=== PATIENT | female | born 1990 | race Caucasian/White ===

== ENCOUNTER → 2021-01-20 14:34 | Outpatient (BNVA) | payer BC, MEDICAID, SELFPAY | PROVIDERS: Referring Provider Nurse Practitioner Family; Visit Provider Podiatrist Foot & Ankle Surgery | DX: M25.572 Pain in left ankle and joints of left foot (principal); M25.571 Pain in right ankle and joints of right foot | CPT/HCPCS: 73630 ==

== ENCOUNTER 2021-04-24 13:27 | Emergency (ER) | payer BC, MEDICAID, SELFPAY ==
[2021-04-24 13:35] VITALS: BP 128/77; PULSE 75; RESP 16; TEMP 36.7; O2SAT 98; BMI 34.3
--- NOTE | 2021-04-24 13:54 | XR_ITS ---
WS: [id number] Cervical spine, 3 views, 04/24/2021 Clinical Data: injury, tenderness Comparison: None. Findings: No compression fractures are seen. 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 There is minimal osteoarthritic spurring of the anterior inferior aspect of C6. The dis c heights are normal. There is no prevertebral soft tissue swelling. The odontoid is unremarkable. Th e soft tissues of the neck and the lung apices are normal. XR/XR cervical spine 3V* [id number] Impression: 1. Negative for cervical spine fracture. 2. Fusion of the C2-C3 vertebra. 3. 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
--- NOTE | 2021-04-24 13:57 | W.ED.NECK ---
HPI - Neck Pain/Injury General: Chief Complaint: Neck Pain/Injury Stated Complaint: Neck pain Time Seen by Provider: 04/24/21 13:44 History of Present Illness: Patient states she fell jarring in her neck a week and a half ago when she tripped over her child while playing. Said pain is not gone away and hurts into her right side of her neck and trapezius area. She said history of problems this x2 with an original injury happening when she was doing wrestling in high school. Denies any numbness or tingling in her extremity. Associated symptoms: Denies headache(s) or nausea Review of Systems Const: Denies: fever(s), chills or body aches Eyes: Denies: eye discomfort ENMT: Denies: throat pain Card: Denies: chest pain Resp: Denies: dyspnea GI: Denies: abdominal pain, nausea or vomiting Musc: Reports: neck pain (Right-sided neck after an injury week and a half ago.) and back pain Skin/Breast: Denies: rash Neuro: Denies: headache(s) Psych: Denies: depression or suicidal ideation PFS ED PFSH: Medical History (Updated 04/24/21 @ 14:[address]) Psychiatric care Social History Smoking and tobacco status: former smoker Physical Exam Const: COMMON NORMALS: no acute distress, patient oriented x3 and alert HENMT: COMMON NORMALS: normocephalic HEAD & SCALP: normocephalic Eye: COMMON NORMALS: EOMs intact bilaterally Neck/C-Spine: COMMON NORMALS: no JVD CERVICAL SPINE: Yes cervical ROM normal, Yes Cervical spine tenderness, Yes Paracervical muscle tenderness right, No Paracervical spasm and Yes Trapezius muscle tenderness right Resp: COMMON NORMALS: normal respiratory effort and No use of accessory muscles Cardio: COMMON NORMALS: no JVD GI: INSPECTION: Yes normal to inspection Extremity: COMMON NORMALS: normal to inspection and full ROM Neuro: COMMON NORMALS: patient oriented x3 SENSORIUM/ORIENTATION: Yes alert Psych: COMMON NORMALS: mental status grossly normal Skin: COMMON NORMALS: no rashes or lesions noted GENERAL SKIN EXAM: no rashes or lesions noted Course Vital Signs: Vital signs: Vital Signs Temperature 98.1 F 04/24/21 13:35 Pulse Rate 75 04/24/21 13:35 Respiratory Rate 16 04/24/21 13:35 Blood Pressure 128/77 04/24/21 13:35 Pulse Oximetry 98 04/24/21 13:35 MDM - Neck Pain/Injury Medical Decision Making Patient with right trapezius pain from an injury week and half ago. Patient has old injury to the neck from when she is in high school also. Patient has congenital fusion C2-C3 vertebrae. Mild osteoarthritis. Patient encouraged to apply moist heat and alternate with cold to that area massage would also help her. Take medication directed. Asked to increase Celebrex 200 mg twice a day for the next week or 2. Patient is follow-up primary care provider. Lab Data Radiology Impressions Cervical Spine X-Ray 04/24/21 13:54 Impression: 1. Negative for cervical spine fracture. 2. Fusion of the C2-C3 vertebra. 3. 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 Discharge Plan Discharge Patient Disposition: Home Clinical Impression: Strain of neck muscle Condition: Stable Prescriptions: New cyclobenzaprine 5 mg tablet 5 mg PO TID PRN (Reason: muscle spasm) Qty: 10 0RF prednisone 20 mg tablet 20 mg PO DAILY Qty: 7 0RF No Action celecoxib [Celebrex] 200 mg capsule 200 mg PO DAILY 0RF levothyroxine 50 mcg capsule 50 mcg PO DAILY 0RF bupropion HCl [Wellbutrin SR] 150 mg tablet sustained-release 12 hr 150 mg PO BID 0RF buspirone 10 mg tablet 10 mg PO BID 0RF metformin 500 mg tablet 500 mg PO BID 0RF naltrexone 50 mg tablet 50 mg PO DAILY 0RF (DME) Supinator to left See Rx Instructions .Route .MEDSUPPLY Qty: 1 0RF Rx Instructions: As directed (DME) Night Splint See Rx Instructions .Route .MEDSUPPLY Qty: 1 0RF Rx Instructions: As directed Discharge Orders: Discharge ED (Routine); Ordered 04/24/21 Ordered By: Michele Mercado Discharge Diet: Usual diet Discharge Activity: Increase activity as tolerated Patient Instructions: Cervical Sprain (ED), Cervical Radiculopathy (ED) Activity Restrictions/Additional Instructions: Follow-up with medical provider as directed. Take medications as prescribed. Return to the ER or your medical provider if condition worsens. Please read and understand discharge instructions. If any questions ask please. Coding Level of Care Code ED Chip Applying Machine Tender for Chg Fwd Exam Comprehensive
== END 2021-04-24 14:30 | disposition home or self-care (01) ==
PROVIDERS: Emergency Provider Nurse Practitioner Family
DX: S16.1XXA Strain of muscle, fascia and tendon at neck level, initial encounter (principal); Z79.84 Long term (current) use of oral hypoglycemic drugs; Z87.891 Personal history of nicotine dependence; W03.XXXA Other fall on same level due to collision with another person, initial encounter
CPT/HCPCS: 72040; 99282; 99291; 99292

== ENCOUNTER 2021-10-07 00:13 | Emergency (ER) | payer BC, MEDICAID, SELFPAY ==
--- NOTE | 2021-10-07 00:16 | XRR_ITS ---
PROCEDURE INFORMATION: Exam: XR Left Ankle Exam date and time: 10/07/2021 12:29 AM Age: 31 years old Clinical indication: Injury or trauma; Fall; Sprain or strain; Left; Patient HX: Patient slipped on grease on floor and fell. C/O pain to ankle and difficulty bearing weight. TECHNIQUE: Imaging protocol: Radiologic exam of the Left ankle. Views: 3 or more views. COMPARISON: No relevant prior studies available. FINDINGS: Bones/joints: Normal. Soft tissues: Normal. XR/XR ankle LT min 3V* [id number] IMPRESSION: No acute findings.
[2021-10-07 00:22] VITALS: BP 119/81; PULSE 87; RESP 18; TEMP 37; O2SAT 100; BMI 34.1
--- NOTE | 2021-10-07 00:34 | ED_ITS ---
HPI - Extremity Problem General: Chief complaint: Extremity Injury, Lower Stated complaint: L ankle injury Time Seen by Provider: 10/07/21 00:21 Source: patient Mode of arrival: ambulatory Limitations: no limitations History of Present Illness: 31-year-old female states that she had slipped on grease at work tonight at 930 states she twisted her left ankle she states that she did not hear a pop but she has had increasing pain to the medial aspect of that ankle since then. States she was able to bear weight at first but not able to bear weight due to the pain currently she rates her pain a 6 out of 10 denies any other injuries. Associated symptoms: Deny chest pain, fever(s) or rash Review of Systems Const: Denies: fever(s), chills, body aches or change in appetite Eyes: Denies: blurry vision or eye discomfort ENMT: Denies: throat pain or dental pain Card: Denies: chest pain Resp: Denies: dyspnea GI: Denies: abdominal pain, nausea, vomiting or diarrhea : Denies: dysuria Musc: Reports: extremity pain Skin/Breast: Denies: rash Neuro: Denies: headache(s) Psych: Denies: depression Hernandez/Lymph: Denies: easy bruising All/Imm: Denies: urticaria PFSH ED PFSH: Medical History Psychiatric care Social History Smoking and tobacco status: former smoker Female Reproductive History: Date of last menstrual period: 09/11/21 Physical Exam Const: COMMON NORMALS: no acute distress, patient oriented x3 and healthy appearing HENMT: COMMON NORMALS: normocephalic and atraumatic HEAD & SCALP: normocephalic and atraumatic Eye: COMMON NORMALS: Equal, round and reactive pupils present and EOMs intact bilaterally PUPIL: Yes Equal, round and reactive pupils present Neck/C-Spine: COMMON NORMALS: full ROM and supple Chest: COMMONS NORMALS: normal inspection of the chest Resp: COMMON NORMALS: normal respiratory effort Cardio: COMMON NORMALS: regular rate, regular rhythm and No murmurs present (Cardio) RATE: regular rate RHYTHM: regular rhythm GI: INSPECTION: Yes normal to inspection Extremity: NARRATIVE EXTREMITY EXAM: tenderness to medial aspect to left ankle no deformity Neuro: COMMON NORMALS: patient oriented x3, moves all extremities and no focal motor deficits Psych: COMMON NORMALS: mental status grossly normal, Normal thought process present and cooperative THOUGHT PROCESS: Normal thought process present Skin: COMMON NORMALS: no rashes or lesions noted and no wounds GENERAL SKIN EXAM: no rashes or lesions noted Course Vital Signs: Vital signs: Vital Signs Temperature 98.6 F 10/07/21 00:22 Pulse Rate 87 10/07/21 00:22 Respiratory Rate 18 10/07/21 00:22 Blood Pressure 119/81 10/07/21 00:22 Pulse Oximetry 100 10/07/21 00:22 Oxygen Delivery Me thod 10/07/21 00:22 MDM - Extremity (Nontraumatic) Medical Decision Making Patient presents with a likely ankle sprain x-ray shows no signs of fracture states she is not able to bear weight patient placed in [place] wrap we will give her crutches she will follow-up with podiatry she is return if worsening she understands agrees to plan. Discharge Plan Discharge Patient Disposition: Home Clinical Impression: Ankle sprain and strain Condition: Stable Prescriptions: New Naprosyn 500 mg tablet 500 mg PO BID PRN (Reason: pain) Qty: 20 0RF No Action celecoxib [Celebrex] 200 mg capsule 200 mg PO DAILY levothyroxine 50 mcg capsule 50 mcg PO DAILY bupropion HCl [Wellbutrin SR] 150 mg tablet sustained-release 12 hr 150 mg PO BID buspirone 10 mg tablet 10 mg PO BID metformin 500 mg tablet 500 mg PO BID naltrexone 50 mg tablet 50 mg PO DAILY (DME) Supinator to left See Rx Instructions .Route .MEDSUPPLY Qty: 1 0RF Rx Instructions: As directed (DME) Night Splint See Rx Instructions .Route .MEDSUPPLY Qty: 1 0RF Rx Instructions: As directed cyclobenzaprine 5 mg tablet 5 mg PO TID PRN (Reason: muscle spasm) Qty: 10 0RF prednisone 20 mg tablet 20 mg PO DAILY Qty: 7 0RF Discharge Orders: Discharge ED (Routine); Ordered 10/07/21 Ordered By: Chong Kimbrough Referrals: Madhu Camarillo DPM [Physician] - 1-3 days Discharge Diet: Advance as tolerated Discharge Activity: Resume usual activity Patient Instructions: Ankle Sprain (ED) Coding Level of Care Code ED Crop Pest Control Specialist for Suraj Jacobs
--- NOTE | 2021-10-07 09:14 | DCPLANNER ---
Addendum entered by Edith Manuel 10/17/21 13:41: talent acquisition project manager received the following message from ortho regarding follow up appointment: Left a vm/mailed letter to schedule with early next week Original Note: talent acquisition project manager had message to schedule a follow up appointment for patient with ortho. talent acquisition project manager sent patients information to the front office staff at ortho. Patients information will be printed and reviewed. Clinic will call patient with appointment information.
== END 2021-10-07 00:47 | disposition home or self-care (01) ==
PROVIDERS: Emergency Provider Emergency Medicine
DX: S93.402A Sprain of unspecified ligament of left ankle, initial encounter (principal); S96.912A Strain of unspecified muscle and tendon at ankle and foot level, left foot, initial encounter; Z79.84 Long term (current) use of oral hypoglycemic drugs; Z87.891 Personal history of nicotine dependence; W01.0XXA Fall on same level from slipping, tripping and stumbling without subsequent striking against object, initial encounter; Y99.0 Civilian activity done for income or pay
CPT/HCPCS: 73610; 99283; E0114

== ENCOUNTER 2022-06-29 10:07 | Outpatient (CLI) | payer BC, MEDICAID, SELFPAY ==
--- NOTE | 2022-06-29 10:18 | MR_ITS ---
WS: [id number] MRI RIGHT SHOULDER HISTORY: R SHOULDER INJURY/PAIN COMPARISON: None available. TECHNIQUE: Multiplanar sequences of the shoulder joint are submitted. Mild AC joint arthritis. Distal clavicular osteophyte with mild encroachment upon the supraspinatus t endon. Very mild subacromial impingement due to an osteophyte. There is a very small amount of fluid in the subacromial and subdeltoid bursa. Normal position of the biceps tendon. No os acromion. Very small articular surface, partial-thickness tear involving the distal supraspinatus tendon. There is an additional thickening and increased signal in the distal tendon. No retraction. No atrophy no muscle atrophy or edema. There is a small amount of fluid near the rotator cuff interval. Increased T 2 signal in the anterior superior labrum. Suspicious for anterior labral tear. MR/MR shoulder RT wo con* [id number] IMPRESSION: 1. Very small distal articular surface supraspinatus tear. 2. Anterior superior labral tear. 3. Minimal AC joint arthritis.
== END 2022-06-29 10:08 | disposition home or self-care (01) ==
LOC: RAD 10:10
PROVIDERS: PCP Nurse Practitioner Family; Visit Provider Nurse Practitioner Family
DX: S49.91XA Unspecified injury of right shoulder and upper arm, initial encounter (principal); X58.XXXA Exposure to other specified factors, initial encounter; M25.511 Pain in right shoulder; M19.011 Primary osteoarthritis, right shoulder
CPT/HCPCS: 73221

== ENCOUNTER 2022-08-03 10:15 | Emergency (ER) | payer MEDICAID, SELFPAY ==
[2022-08-03 10:20] VITALS: BP 132/80; PULSE 66; RESP 18; TEMP 36.9; O2SAT 99; BMI 31.7
--- NOTE | 2022-08-03 10:46 | ED_ITS ---
HPI - Dental/Oral General: Chief complaint: Dental/Oral Stated complaint: Facial Abscess Time Seen by Provider: 08/03/22 10:21 Source: patient Mode of arrival: ambulatory Limitations: no limitations History of Present Illness: Patient is a 32-year-old female presents to ED today with complaint of dental pain and right-sided facial swelling. Patient states side of her mouth near her right upper dental region has been bothering her over the last few days. She states she woke up this morning and noticed swelling to the right side of her face. She states she does have a dentist appointment scheduled but it is not until December. Patient is able to eat, drink, control secretions, and swallowing normally. No fevers. She has not noticed any redness or warmth to her face. No neck pain or swelling. MD Complaint: tooth pain Onset (ago): day(s) Duration: constant Severity: moderate Relieving factors: nothing Exacerbating factors: nothing Associated symptoms: Reports gum swelling; Denies ear or mastoid pain, fever(s) or odynophagia Review of Systems Const: Denies: fever(s), chills, body aches, fatigue or malaise Eyes: Denies: change in vision, photophobia, floaters or seeing flashes ENMT: Reports: dental pain, sinus pain and other (facial swelling); Denies: throat pain, odynophagia, swelling of lips/tongue, oral sores, ear or mastoid pain, nasal discharge or nasal congestion Card: Denies: chest pain Resp: Denies: dyspnea GI: Denies: abdominal pain Musc: Denies: neck pain Skin/Breast: Denies: rash Neuro: Denies: headache(s) or dizziness PFS ED PFSH: Social History Smoking and tobacco status: former smoker Physical Exam Const: COMMON NORMALS: no acute distress, average body habitus, patient oriented x3, no limitations, healthy appearing, alert and well nourished ORIENTATION/CONSCIOUSNESS: Yes awake, Yes oriented to person, Yes oriented to place and Yes oriented to time HENMT: COMMON NORMALS: normocephalic, atraumatic, external ears normal, EAC's normal, TM's normal bilaterally, Normal external nose present, Normal nasal mucous membranes and turbinates present, moist oral mucous membranes and oropharynx normal HEAD & SCALP: normal to inspection, normocephalic and atraumatic FACE & SINUS: sinuses nontender; no erythema and no fluctuance FACE & SINUS IMAGES: 1. swelling/pain NOSE: Normal external nose present and Normal nasal mucous membranes and turbinates present EXTERNAL EAR: Yes external ears normal EXTERNAL AUDITORY CANAL: EAC's normal TYMPANIC MEMBRANE: TM's normal bilaterally MOUTH: Normal oral and palatal mucosa present, lip normal and tongue normal TEETH & GINGIVA: Yes fair dentition TEETH & GINGIVA IMAGES: 1. extracted 3rd molar; TTP along upper gumline with some swelling concerning for developing infection; no obvious abscess formation THROAT: posterior oropharynx normal, tonsils normal and uvula midline Eye: GENERAL EYE: appearance normal, both eyes and all related structures Neck/C-Spine: COMMON NORMALS: no lymphadenopathy GENERAL: Yes normal visual inspection, No anterior neck swelling and No submandibular swelling Resp: COMMON NORMALS: normal respiratory effort Neuro: COMMON NORMALS: patient oriented x3 SENSORIUM/ORIENTATION: Yes alert, Yes oriented to person, Yes oriented to place and Yes oriented to time Course Vital Signs: Vital signs: Vital Signs Temperature 98.4 F 08/03/22 10:51 Pulse Rate 66 08/03/22 10:51 Respiratory Rate 18 08/03/22 10:51 Blood Pressure 132/80 08/03/22 10:51 Pulse Oximetry 99 08/03/22 10:51 Oxygen Delivery Me thod Room Air 08/03/22 10:20 MDM - Dental/Oral Medical Decision Making Will cover with antibiotics and recommend prompt dental follow-up preferably sooner than December if possible. She was provided dental resources. Return to ED precautions given. Discharge Plan Discharge Patient Disposition: Home Clinical Impression: Facial swelling, Pain, dental Condition: Stable Prescriptions: New clindamycin HCl 300 mg capsule 300 mg PO Q6H 7 Days Qty: 28 0RF No Action levothyroxine 50 mcg capsule 50 mcg PO DAILY Discharge Orders: Discharge ED (Routine); Ordered 08/03/22 Ordered By: Flora Mullen Referrals: Cheyanne Tejeda, PRECISION LAYOUT WORKER [Primary Care Provider] - Patient Instructions: Toothache (ED), Dental Abscess Activity Restrictions/Additional Instructions: As we discussed please follow-up with a dentist as soon as possible. He may return to the emergency department for worsening pain, swelling, redness or warmth to the face, fevers, or any other concerns you may have. I hope you begin to feel better soon. Coding Level of Care Code ED Entry Level Accounting Clerk for Suraj Jacobs
[2022-08-03 10:51] VITALS: BP 132/80; PULSE 66; RESP 18; TEMP 36.9; O2SAT 99
== END 2022-08-03 10:52 | disposition home or self-care (01) ==
PROVIDERS: Emergency Provider Physician Assistant; PCP Nurse Practitioner Family
DX: K08.89 Other specified disorders of teeth and supporting structures (principal); M79.89 Other specified soft tissue disorders; Z87.891 Personal history of nicotine dependence
CPT/HCPCS: 99283

== ENCOUNTER 2022-12-10 15:55 | Emergency (ER) | payer MEDICAID, SELFPAY ==
[2022-12-10 15:58] VITALS: BP 110/70; PULSE 81; RESP 15; O2SAT 99
--- NOTE | 2022-12-10 17:16 | XRR_ITS ---
PROCEDURE INFORMATION: Exam: XR Lumbosacral Spine Exam date and time: 12/10/2022 6:38 PM Age: 32 years old Clinical indication: Low back pain; Additional info: Pain, pain on lower lumbar vertebral region (midline) TECHNIQUE: Imaging protocol: Radiologic exam of the lumbosacral spine. Views: 2 or 3 views. COMPARISON: No relevant prior studies available. FINDINGS: Bones/joints: Normal. No acute fracture. Normal alignment. Soft tissues: Unremarkable. XR/XR lumbar spine 2-3V* [id number] IMPRESSION: No acute findings.
[2022-12-10] MEDS: ketorolac 60 mg/2 mL INJ IM (17:29)
[2022-12-10] MEDS: orphenadrine 30 mg/mL Inj 2 mL 60 MG IM (17:29)
[2022-12-10] MEDS: dexamethasone 10 mg/mL INJ IM (17:29)
[2022-12-10 17:57] LABS: HCG Qualitative Urine. Negative (Negative)
--- NOTE | 2022-12-10 18:27 | W.ED.BACK ---
HPI - Back Pain/Injury General: Chief Complaint: Back Pain/Injury Stated Complaint: back pain Time Seen by Provider: 12/10/22 16:16 Source: patient Mode of arrival: ambulatory Limitations: no limitations History of Present Illness: Patient presents emergency department today for evaluation treatment of midline lumbar vertebral pain. Patient states that a couple days ago she was helping her sister move and admits that she strained her back. She was states she was doing all right but today, while bending over to lift something up felt a pop in her low back and has had pain worsening since that time. Patient reports that standing and weightbearing causes the worst amount of pain and that if she is laid back and on her side, pain can almost resolved. She denies any issues with bowel or bladder function today. She is still able to bear weight and ambulate and denies pain radiating down into the lower extremities. No tingling or numbness into the lower extremities. She denies any previous injuries or surgeries to her low back. Review of Systems General: Reports: 10 or more systems reviewed and unremarkable except in HPI and below PFSH ED PFSH: Social History Smoking and tobacco status: former smoker Physical Exam Const: COMMON NORMALS: no acute distress, patient oriented x3 and alert HENMT: COMMON NORMALS: normocephalic, atraumatic and hearing grossly normal bilaterally HEAD & SCALP: normocephalic and atraumatic Eye: COMMON NORMALS: Equal, round and reactive pupils present, EOMs intact bilaterally and conjunctivae normal CONJUNCTIVA: Yes conjunctivae normal PUPIL: Yes Equal, round and reactive pupils present Neck/C-Spine: COMMON NORMALS: full ROM and no JVD Lymph: LYMPHATIC: no lymphadenopathy noted Resp: COMMON NORMALS: normal respiratory effort, No retractions and No use of accessory muscles Cardio: COMMON NORMALS: no JVD and regular rate RATE: regular rate Back/Pelvis: OTHER: Patient is point tender along the lower lumbar region to the level of the sacrum. No tenderness on palpation to the surrounding musculature. Pain worse on palpation during exam. Extremity: NARRATIVE EXTREMITY EXAM: Patient is independently ambulatory and weightbearing here in the emergency department. Full range of motion noted to the extremities. Neuro: COMMON NORMALS: patient oriented x3 SENSORIUM/ORIENTATION: Yes alert Psych: COMMON NORMALS: mental status grossly normal, Normal thought process present, cooperative and normal affect THOUGHT PROCESS: Normal thought process present Skin: COMMON NORMALS: no rashes or lesions noted and turgor normal GENERAL SKIN EXAM: no rashes or lesions noted and turgor normal Course Vital Signs: Vital signs: Vital Signs Pulse Rate 81 12/10/22 15:58 Respiratory Rate 15 12/10/22 15:58 Blood Pressure 110/70 12/10/22 15:58 Pulse Oximetry 99 12/10/22 15:58 Oxygen Delivery Me thod Room Air 12/10/22 15:58 MDM - Back Pain/Injury Medical Decision Making Given that the patient has no previous history of low back issues or surgery associated with tenderness on palpation in the midline vertebral region we did discuss getting imaging. Patient agreed. However, there was significant delays in getting the imaging performed and patient had been treated with steroid, muscle relaxer, and NSAID upon her arrival to the room. She indicated she was feeling much better and was requesting to discharge before imaging was performed. Continue treatment prescribed for her as we had discussed tenderness and discomfort for a couple of days. She is to take it easy through the weekend and we discussed other at home options for treatment as well. She was given cautions regarding muscle relaxers and sedation side effects. Return precautions involving bowel or bladder dysfunction or inability to stand and bear weight on the lower extremities requiring immediate evaluation here in the emergency department. Otherwise, she was requested to have a follow-up appointment with her primary care next week for recheck. Patient verbalized understanding and agreement to treatment plan. Differential Diagnosis Likely strain of lumbar region; Unlikely lumbar radiculopathy, sciatica, pyelonephritis or thoracic back pain Labs Laboratory Results HCG, Qual Negative (Negative) 12/10/22 16:40 No radiology studies performed this visit (pt declined imaging due to wait) Discharge Plan Discharge Patient Disposition: Home Clinical Impression: Lumbar back pain Condition: Stable Prescriptions: New tizanidine 4 mg tablet 4 mg PO Q8H PRN (Reason: muscle spasticity) Qty: 15 0RF methylprednisolone 4 mg tablets,dose pack See Rx Instructions PO .COMPLEX Qty: 21 0RF Rx Instructions: orally per package directions No Action levothyroxine 50 mcg capsule 50 mcg PO DAILY Discharge Orders: Discharge ED (Routine); Ordered 12/10/22 Ordered By: Madeleine Kearns Referrals: Cheyanne Tejeda NP [Primary Care Provider] - Discharge Diet: Usual diet Discharge Activity: Increase activity as tolerated Patient Instructions: Acute Low Back Pain (ED) Activity Restrictions/Additional Instructions: Continue to watch for any discomfort spreading anterior lower legs. If you are unable to bear weight due to weakness or numbness in your legs you need to be seen and reevaluated. Also, if you develop inability to control your bowel or bladder you need to be seen as well. We recommend taking it easy for the next couple of days-avoid any strenuous lifting, pushing, pulling, or activities. You can apply heating pad to your low back for 15 to 20 minutes, multiple times throughout the day to help with discomfort as well. Recommend a follow-up appoint with your primary care next week for recheck should you continue to have low back issues. May take Tylenol and ibuprofen in addition to the prescription medications you were provided. Do not drive while taking a muscle relaxer-tizanidine. Do not drink alcohol during this time. Coding Level of Care Code ED Industrial Technology Education Teacher for Suraj Jacobs
== END 2022-12-10 18:56 | disposition home or self-care (01) ==
PROVIDERS: Emergency Provider Physician Assistant; PCP Nurse Practitioner Family
DX: M54.50 Low back pain, unspecified (principal); Z87.891 Personal history of nicotine dependence
CPT/HCPCS: 72100; 81025; 96372; 99284; J1100; J1885; J2360

== ENCOUNTER 2023-02-11 12:52 | Outpatient (CLI) | payer MEDICAID, SELFPAY ==
--- NOTE | 2023-02-11 13:00 | MRR_ITS ---
PROCEDURE INFORMATION: Exam: MR Right Lower Extremity Joint Without Contrast; Ankle Exam date and time: 02/11/2023 1:12 PM Age: 33 years old Clinical indication: Condition or disease; Other: Juvenile osteochondrosis of tarsus, prior surgery; Surgery date: 6+ months; Surgery type: 2008 right ankle; Additional info: M92.61 - juvenile osteochondrosis of tarsus, right ankle, evaluate right achilles tendon- injury over 1 year ago- pain TECHNIQUE: Imaging protocol: Magnetic resonance imaging of the right lower extremity without contrast. Exam focused on the ankle. COMPARISON: [place] [id number] ORTH 01/20/2021 2:40 PM FINDINGS: Bones/joints: An area of diminished T1 and increased T2 signal within the anterior calcaneus may represent a small bone cyst without surrounding reactive marrow signal. Minimal area of reactive marrow signal at the medial margin of the medial malleolus. Small ankle joint effusion versus physiologic fluid. LIGAMENTS: Distal tibiofibular syndesmosis: Unremarkable. No tear. Anterior talofibular ligament: Unremarkable. No tear. Posterior talofibular ligament: Unremarkable. No tear. Calcaneofibular ligament: Unremarkable. No tear. Deltoid ligament complex: Unremarkable. No tear. TENDONS: Flexor tendons of foot: Fluid within flexor digitorum longus tendon sheaths. A small amount of fluid within flexor hallucis longus tendon sheath. Tibialis posterior tendon: Unremarkable as visualized. Peroneal tendons: Unremarkable as visualized. Extensor tendons of foot: Unremarkable as visualized. Tibialis anterior tendon: Unremarkable as visualized. Achilles tendon: Unremarkable as visualized. Tarsal canal (Sinus tarsi): Unremarkable. Normal signal of the fat. Tarsal tunnel: Unremarkable. Soft tissues: Unremarkable. Plantar fascia: Plantar fascia is unremarkable. MR/MR ankle RT wo con* [id number] IMPRESSION: 1. Likely benign cyst within the calcaneus. 2. Small ankle joint effusion. 3. Minor flexor digitorum longus and flexor hallucis longus tenosynovitis.
== END 2023-02-11 12:53 | disposition home or self-care (01) ==
LOC: RAD 12:52
PROVIDERS: PCP Nurse Practitioner Family; Visit Provider Podiatrist Foot & Ankle Surgery
DX: Z01.818 Encounter for other preprocedural examination (principal); M92.61 Juvenile osteochondrosis of tarsus, right ankle; M92.62 Juvenile osteochondrosis of tarsus, left ankle; M76.61 Achilles tendinitis, right leg; M25.471 Effusion, right ankle; M65.871 Other synovitis and tenosynovitis, right ankle and foot
CPT/HCPCS: 73721

== ENCOUNTER 2023-06-08 13:34 | Outpatient (CLI) | payer BC, MEDICAID, SELFPAY ==
--- NOTE | 2023-06-08 13:49 | MR_ITS ---
WS: [id number] MRI LEFT SHOULDER HISTORY: L SHOULDER PAIN COMPARISON: None available. TECHNIQUE: Multiplanar sequences of the shoulder joint are submitted. Mild AC joint arthritis. Small osteophytes from the AC joint with mild encroachment upon the supraspi natus muscle and tendon. Small amount of fluid in the subacromial and subdeltoid bursa. No subacromia l impingement. No os acromion. Biceps tendon is identified in the bicipital groove. Normal alignment at the glenohumeral joint. No rotator cuff muscle atrophy. There is a very tiny amou nt of edema in the distal anteriormost supraspinatus muscle. There is a very small insertion site tea r of the anteriormost supraspinatus tendon. Mild thickening and increased T2 signal of the distal sub scapularis tendon. The relationship between the subscapularis tendon and the biceps tendon is very di fficult to identify in part due to motion. There is no retraction of the tendon. No labral tear. IMPRESSION: 1. Mild AC joint arthritis. 2. Small insertion site tear of the anteriormost supraspinatus tendon with adjacent muscle edema. No muscle atrophy. 3. Thickening and indistinctness involving the distal subscapularis tendon from tendinopathy. 4. Mild AC joint arthritis.
== END 2023-06-08 13:35 | disposition home or self-care (01) ==
PROVIDERS: PCP Nurse Practitioner Family; Visit Provider Nurse Practitioner Family
DX: M25.512 Pain in left shoulder (principal); M75.102 Unspecified rotator cuff tear or rupture of left shoulder, not specified as traumatic
CPT/HCPCS: 73221

== ENCOUNTER 2023-06-18 05:41 | Day surgery (SDC) | payer MEDICAID, SELFPAY ==
[2023-06-18] VITALS (11 sets, daily range): BP systolic 93–117; BP diastolic 52–84; PULSE 60–79; RESP 16–21; TEMP 36.2–36.4; O2SAT 71–100; BMI 30.9
--- NOTE | 2023-06-18 06:02 | W.PM.OPSUD ---
Surgery/Procedure H&P Update DATE OF PROCEDURE: June 18, 2023 DATE H&P PERFORMED: 05/31/23 H&P UPDATE INFORMATION: I have reviewed H&P completed within last 30 days, I have examined patient prior to procedure, No changes to prior documentation and H&P is in [facility] EMR on date indicated PLANNED PROCEDURE: Operation Date: 06/18/23 07:00 Proposed Procedures p Haglunds Resection(Right) - Madhu Camarillo DPM s Platelet Rich Plasma Injection(Right) - Madhu Camarillo DPM
[2023-06-18] MEDS: sodium chloride 0.9% 1,000 ML 30 ML IV (06:38)
[2023-06-18] MEDS: CELEcoxib 200 mg Capsule 400 MG PO (06:40)
[2023-06-18] MEDS: gabapentin 300 mg Capsule PO (06:40)
--- NOTE | 2023-06-18 06:41 | P.ANESASSM_ITS ---
Pre-Anesthetic Assessment Height/Weight: Height 1.63 m Weight 81.647 kg Temp Pulse Resp BP Pulse Ox O2 Del Method 97.2 F L 71 18 113/83 71 L Room Air 06/18/23 06:19 06/18/23 06:19 06/18/23 06:19 06/18/23 06:19 06/18/23 06:19 06/18/23 06:19 Preop Diagnosis: Right Danyel's deformity Operation Date: 06/18/23 07:00 Proposed Procedures p Haglunds Resection(Right) - Madhu Camarillo DPM s Platelet Rich Plasma Injection(Right) - Madhu Camarillo DPM Familial anesthetic complications: none Was Beta Jazzy taken within 24 hours: N/A Was Clonidine taken within 24 hours: N/A Last intake: Intake Last Liquid Date 06/17/23 Last Liquid Time 20:30 Last Solid Date 06/17/23 Last Solid Time 19:00 Social Alcohol (social) and Tobacco (vape) Exam alert, oriented x 3, clear to auscultation bilaterally and regular rate & rhythm Airway Submandibular: within normal limits Cervical ROM: within normal limits Mallampati: Class II Dentition: full History/ROS No significant history except as noted Pulmonary None reported CV/HEM None reported Hepatic None reported GI None reported Metabolic Thyroid Disease [facility] None reported Neuropsych None reported Anesthetic Plan ASA status: 2 Anesthesia: General Medications/Allergies Home Medications Medication Instructions Recorded Confirmed Last Taken Type levothyroxine 50 mcg capsule 50 mcg PO DAILY 01/20/21 06/17/23 06/17/23 History Allergies Allergy/AdvReac Type Severity Reaction Status Date / Time No Known Allergies Allergy Verified 06/17/23 10:04 Current Medications Generic Name Dose Route Start Last Admin Trade Name Freq PRN Reason Stop Dose Admin Sodium Chloride 1,000 mls @ 30 mls/hr 06/18/23 06:15 06/18/23 06:38 Sodium Chloride 0.9% IV 06/19/23 06:14 30 mls/hr .Q24H PRUDENCIO Administration PFSH Anesthesia Social History Smoking and tobacco/nicotine status: former use of tobacco/nicotine Data Anesthesia Cardiac Studies: No Data to Display
[2023-06-18] MEDS: ceFAZolin 2,000 MG in sodium chloride 0.9% (plus) 50 ML 100 MG IV (07:02)
[2023-06-18] MEDS: BUPivacaine liposome 13.3 mg/mL SDV 10 mL 133 MG INFILTRATI (07:40)
[2023-06-18] MEDS: BUPivacaine 0.5% INJ 30 mL INJECTION (07:41)
--- NOTE | 2023-06-18 08:00 | W.PM.BPON ---
Date of Procedure: 05/21/23 Surgeon: Madhu Camarillo DPM Bleach Plant Operator(s): Lashonda Procedure(s) performed: Right Danyel's resection and platelet rich plasma injection to the right Achilles tendon and retrocalcaneal bursa. Findings of the procedure(s): Danyel's deformity, right Estimated blood loss: 2 mL Specimen(s) removed: None Post-operative diagnosis: Right Danyel's and right Achilles tendinosis, right retrocalcaneal bursitis. No complications with anesthesia or surgery.
--- NOTE | 2023-06-18 08:01 | P.OP_ITS ---
Operative Report Date of procedure: June 18, 2023 Pre-op diagnosis: Right Danyel's deformity. Right Achilles tendinosis. Post-op diagnosis: Same Procedure done: Right Danyel's resection. CPT code 83266 Platelet rich plasma injection right Achilles tendon. 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 Has been unresponsive to physical therapy and conservative efforts consisting of rest, stretching, eccentric loading, open back shoes, topical and oral anti-inflammatories for the past 5 months. States that her pain is affecting her overall quality of life and keeping her from being more active. She is wishing to discuss surgical options. Recommended Danyel's resection and PRP injection to the Achilles tendon starting with right lower extremity first. I reviewed at length with the patient, the risks, potential complications, benefits, alternatives, expectations, and typical outcomes associated with the surgery. The risks and potential complications were explained in detail, including but not limited to infection, wound dehiscence or soft tissue complications, bleeding and hematoma, chronic edema, neuritis or nerve damage producing numbness or chronic pain, CRPS, failure to relieve pain or worsening pain, thick / painful / unsightly scar, limited motion / stiffness, malposition, delayed union, malunion, or nonunion, fracture, reaction to implants, anesthetic complications, venous thromboembolism, and deformity recurrence. I discussed the notion of no regrets with the patient as it pertains to complications and outcomes. The patient seemed to understand the nature of the proposed care and required convalescence. They asked appropriate questions, answered to their satisfaction. They are aware no guarantees can be made as to a satisfactory outcome and they understand there may be other possible unforeseen complications or outcomes not listed here that will be treated accordingly if they arise. There were no writt en or implied guarantees given to the patient. They gave informed consent to proceed. Procedure: Under mild sedation the patient was brought to the operating room and positioned onto the operating table in supine position. A timeout was performed. Anesthesia was then administered by the anesthesia service. Popliteal block to the right lower extremity was performed preoperatively per anesthesia. Well- padded pneumatic tourniquet applied to the right high calf. Right lower extremity was scrubbed, prepped and draped utilizing normal aseptic technique. Right foot and ankle were exanguinated with Esmarch bandage and tourniquet inflated to 250 mmHg. Attention was directed to the Danyel's bump at the posterior calcaneal tuberosity located at superior lateral aspect, linear longitudinal incision was made lateral to the Achilles tendon. Incision was deepened utilizing sharp and blunt technique. Care was taken to retract and preserve neurovascular and tendinous structures. All bleeders were ligated and cauterized as necessary. Osteotome was utilized to resect the Danyel's deformity followed by power rasp smoothing all rough edges. The incision was irrigated with saline solution and closed in a layered fashion. Subcutaneous tissue reapproximated with 4-0 Vicryl. Skin with 4-0 nylon. Injection of 1 cc of platelet rich plasma was injected at the insertion of the right Achilles. A total of 50 cc of blood was drawn from the patient and platelet rich plasma was harvested and injected as above. Incision was dressed with Adaptic, sterile 4 x 4's, Kerlix and Marcos wrap, cam boot was applied to the right foot. Tourniquet was deflated and a prompt hyperemic response was noted to the distal digits of the right foot. Patient tolerated the procedure and anesthesia well and was transferred to the PACU with vital signs stable and vascular status intact. Following a period of postoperative monitoring patient will be discharged home was given at home care instructions, scheduled follow-up and my cell phone number to contact with any postoperative questions or concerns.
[2023-06-18] MEDS: ondansetron 2 mg/ML SDV 2 mL 4 MG IVP (08:17)
[2023-06-18] MEDS: HYDROcodone-acetaminophen 10-325 mg Tablet 1 TAB PO (08:43)
--- NOTE | 2023-06-18 09:35 | ANE.PACU2 ---
Inpatient post-anesthesia follow up: Airway intact: Yes Vital signs: Temperature 97.5 F Pulse Rate 63 Respiratory Rate 18 Blood Pressure 117/72 Pulse Oximetry 100 Oxygen Delivery Me thod Room Air Oxygen Flow Rate 6 Fraction of Inspir ed Oxygen Hydration adequate: Yes Nausea and vomiting: No Pain level: 1 Mental status: Baseline
== END 2023-06-18 09:36 | disposition home or self-care (01) ==
PROVIDERS: PCP Nurse Practitioner Family; Visit Provider Podiatrist Foot & Ankle Surgery
PROC: (CPT 20550; principal; 2023-06-18 07:00)
PROC: (CPT 0232T; 2023-06-18 07:00)
DX: M92.61 Juvenile osteochondrosis of tarsus, right ankle (principal); M76.61 Achilles tendinitis, right leg; Z87.891 Personal history of nicotine dependence
CPT/HCPCS: 20550; 28120; 36415; 81025; C9290; J0690; J1100; J1885; J2250; J2405; J2704; J3010; J3490; J7030

== ENCOUNTER → 2023-07-08 08:02 | Outpatient (BNVA) | payer MEDICAID, SELFPAY | PROVIDERS: PCP Nurse Practitioner Family; Referring Provider Nurse Practitioner Family; Visit Provider Student in an Organized Health Care Education/Training Program | DX: M25.511 Pain in right shoulder; S46.119A Strain of muscle, fascia and tendon of long head of biceps, unspecified arm, initial encounter; X58.XXXA Exposure to other specified factors, initial encounter | CPT/HCPCS: 73030 ==

== ENCOUNTER 2023-08-09 15:46 | Emergency (ER) | payer MEDICAID, SELFPAY ==
[2023-08-09 15:55] VITALS: BP 131/80; PULSE 90; RESP 16; TEMP 36.7; O2SAT 100
[2023-08-09 18:31] VITALS: BP 174/86; PULSE 66; RESP 18; O2SAT 100
--- NOTE | 2023-08-09 18:32 | ED_ITS ---
HPI - Burn/Smoke Inhalation General: Chief complaint: Burn/Smoke Inhalation Stated complaint: right hand burn, blistering Time Seen by Provider: 08/09/23 18:28 History of Present Illness: 33-year-old female who presents emergenc y room with a burn of her hand. She had excellently spilled cooking grease on it while she was cooking today. She has a burn goes down the dorsum of her hand and then wraps around to the palmar side of her wrist. There is no circumferential burn. She has some mild blistering. Primarily redness. She has been applying ice directly to the burn. We discussed using tap water that is cool. But not direct application of ice is of a damaged skin. No other injuries. She is neurovascularly intact. Review of Systems Narrative: Constitutional symptoms: Negative except as documented in HPI. Skin symptoms: Negative except as documented in HPI. Eye symptoms: Negative except as documented in HPI. ENMT symptoms: Negative except as documented in HPI. Respiratory symptoms: Negative except as documented in HPI. Cardiovascular symptoms: Negative except as documented in HPI. Gastrointestinal symptoms: Negative except as documented in HPI. Genitourinary symptoms: Negative except as documented in HPI. Musculoskeletal symptoms: Negative except as documented in HPI. Neurologic symptoms: Negative except as documented in HPI. Psychiatric symptoms: Negative except as documented in HPI. Endocrine symptoms: Negative except as documented in HPI. PFSH ED PFSH: Social History Smoking and tobacco/nicotine status: former use of tobacco/nicotine Alcohol intake: current Alcohol intake frequency: holidays/special occasions only Physical Exam Narrative: EXAM NARRATIVE: General: Alert, no acute distress. Skin: warm and dry. Patient has primarily first-degree burn base of her thumb and over the ventrum of her hand that wraps around to the palmar side of the ulnar side of her arm. There is no circumferential burn. Mild blistering/second-degree cardenas. Neurovascularly intact Head: Normocephalic Neck: Trachea midline Eye: Extraocular movements are intact. Ears, nose, mouth and throat: Oral mucosa moist Respiratory: Respirations are non-labored Musculoskeletal: Normal ROM Neurological: Alert and oriented, No focal neurological deficit observed. Psychiatric: Cooperative, appropriate mood & affect. Course Vital Signs: Vital signs: Vital Signs Temperature 98.1 F 08/09/23 15:55 Pulse Rate 66 08/09/23 18:31 Respiratory Rate 18 08/09/23 18:31 Blood Pressure 174/86 08/09/23 18:31 Pulse Oximetry 100 08/09/23 18:31 Oxygen Delivery Me thod Room Air 08/09/23 18:31 MDM - Burn/Smoke Inhalation Medical Decision Making Assessment and plan: First and second-degree cardenas of the hand. ?[place], Toradol and Zofran in the emergency room - Discharged home - Discussed plan with patient. Answered any questions. - Evaluation and treatment of this problem were appropriate in the emergency setting. No radiology studies performed this visit Discharge Plan Discharge Patient Disposition: Home Clinical Impression: Burn Condition: Stable Prescriptions: New hydrocodone-acetaminophen 5-325 mg tablet 1 tab PO Q6H PRN (Reason: pain) Qty: 20 0RF ondansetron 8 mg tablet,disintegrating 8 mg PO .q6 PRN (Reason: nausea and vomiting) Qty: 14 0RF diclofenac sodium 50 mg tablet,delayed release (DR/EC) 50 mg PO Q12H Qty: 20 0RF Miralax 17 gram/dose powder 17 g PO DAILY Qty: 510 0RF Rx Instructions: Take 1 scoop daily while taking pain medications. No Action levothyroxine 50 mcg capsule 50 mcg PO DAILY hydrocodone-acetaminophen 5-325 mg tablet 1 tab PO Q8H PRN (Reason: pain) 7 Days Qty: 21 0RF hydrocodone-acetaminophen 5-325 mg tablet 1 tab PO TID PRN (Reason: pain) 7 Days Qty: 21 0RF Discharge Orders: Discharge ED (Routine); Ordered 08/09/23 Ordered By: Lizzeth Spicer Referrals: Cheyanne Tejeda NP [Primary Care Provider] - Discharge Diet: Usual diet Discharge Activity: Increase activity as tolerated Patient Instructions: Superficial Burn (ED), Opioid Safety, Pain Management Activity Restrictions/Additional Instructions: Thank you for choosing [facility] for your healthcare needs today. Ple ase realize this is an emergency room and that we are providing you with a medical screening exam and this may not be complete and all inclusive of all the testing and or work up that you may need to determine your ailment or severity of your illness. You have been screened and evaluated and felt safe for discharge. Health conditions do change or evolve sometimes and as such it is important that you follow up with your Primary Doctor to be re checked, 3-5 days is a general good time frame for follow up. You are always welcome to return to the ED for re assessment if your symptoms are worsening or you have new concerns Coding Level of Care Code ED Maintenance Clerk for Suraj Jacobs
[2023-08-09] MEDS: HYDROcodone-acetaminophen 10-325 mg Tablet 1 TAB PO (18:38)
[2023-08-09] MEDS: ondansetron 4 MG Tablet PO (18:38)
[2023-08-09] MEDS: ketorolac 60 mg/2 mL INJ IM (18:39)
== END 2023-08-09 18:59 | disposition home or self-care (01) ==
PROVIDERS: Emergency Provider Emergency Medicine; PCP Nurse Practitioner Family
DX: T23.291A Burn of second degree of multiple sites of right wrist and hand, initial encounter (principal); X10.2XXA Contact with fats and cooking oils, initial encounter; Z87.891 Personal history of nicotine dependence
CPT/HCPCS: 96372; 99284; J1885; Q0162

== ENCOUNTER 2023-08-10 10:48 | Emergency (ER) | payer MEDICAID, SELFPAY ==
[2023-08-10 11:21] VITALS: BP 126/91; PULSE 91; RESP 18; TEMP 36.8; O2SAT 98
--- NOTE | 2023-08-10 12:33 | W.ED.EXTPRO ---
HPI - Extremity Problem General: Chief complaint: Extremity Injury, Upper Stated complaint: hand burn, med review Time Seen by Provider: 08/10/23 11:21 Source: patient Mode of arrival: ambulatory Limitations: no limitations History of Present Illness: Patient is a nice 33-year-old female presents to ED today requesting her pain medication prescription be retransmitted. Patient was seen here in the emergency department yesterday following a right hand burn that she sustained after spilling hot grease onto it. She was given prescriptions for hydrocodone, MiraLAX (to help with constipation from the hydrocodone), nausea medication, as well as diclofenac. Patient states these prescriptions were called into the [facility] pharmacy in [place] however when she went to pick them up the pharmacy had already closed. She states she contacted the pharmacy the following morning and had her prescriptions transferred to her home pharmacy ([facility]) so she could pick them up there. She states the prescriptions were transferred but that they could not transfer the hydrocodone due to it being a controlled substance. MD Complaint: extremity pain Onset (ago): hour(s) Pain Consistency: constant Location: right and upper extremity Quality: burning Radiation: none Relieving factors: other (using topical spray and the diclofenac) Associated symptoms: Reports no associated symptoms Review of Systems Musc: Reports: extremity pain (R hand burn) COUNT INCLUDES THE [facility] ED PFSH: Social History Smoking and tobacco/nicotine status: former use of tobacco/nicotine Alcohol intake: current Alcohol intake frequency: holidays/special occasions only Physical Exam Const: COMMON NORMALS: no acute distress, average body habitus, patient oriented x3, no limitations, healthy appearing, alert and well nourished Extremity: GENERAL: Yes normal exam except as noted RIGHT UPPER EXTREMITY: Yes hand & digits Right hand and digits: Yes ROM exam (normal) and Yes neurovascular exam (normal) OTHER: R hand burn appears to be healing normally. No evidence for developing infection. Neuro: COMMON NORMALS: patient oriented x3, moves all extremities, no focal motor deficits and no sensory deficits noted SENSORIUM/ORIENTATION: Yes alert Course Vital Signs: Vital signs: Vital Signs Temperature 98.2 F 08/10/23 11:21 Pulse Rate 91 08/10/23 11:21 Respiratory Rate 18 08/10/23 11:21 Blood Pressure 126/91 08/10/23 11:21 Pulse Oximetry 98 08/10/23 11:21 Oxygen Delivery Me thod Room Air 08/10/23 11:21 MDM - Extremity (Nontraumatic) Medical Decision Making Patient's story seems legitimate. Will provide her with a new RX for pain medications. Medical Records I reviewed the patient's medical records. No radiology studies performed this visit Discharge Plan Discharge Patient Disposition: Home Clinical Impression: Burn of hand, right Condition: Stable Prescriptions: Continued hydrocodone-acetaminophen 5-325 mg tablet 1 tab PO Q6H PRN (Reason: pain) Qty: 20 0RF No Action levothyroxine 50 mcg capsule 50 mcg PO DAILY hydrocodone-acetaminophen 5-325 mg tablet 1 tab PO Q8H PRN (Reason: pain) 7 Days Qty: 21 0RF hydrocodone-acetaminophen 5-325 mg tablet 1 tab PO TID PRN (Reason: pain) 7 Days Qty: 21 0RF ondansetron 8 mg tablet,disintegrating 8 mg PO .q6 PRN (Reason: nausea and vomiting) Qty: 14 0RF diclofenac sodium 50 mg tablet,delayed release (DR/EC) 50 mg PO Q12H Qty: 20 0RF Miralax 17 gram/dose powder 17 g PO DAILY Qty: 510 0RF Rx Instructions: Take 1 scoop daily while taking pain medications. Discharge Orders: Discharge ED (Routine); Ordered 08/10/23 Ordered By: Flora Mullen Referrals: Cheyanne Tejeda NP [Primary Care Provider] - Patient Instructions: Second-Degree Burn (ED), Opioid Safety, Pain Management Coding Level of Care Code ED Material Dispatcher for Suraj Jacobs
== END 2023-08-10 12:43 | disposition home or self-care (01) ==
PROVIDERS: Emergency Provider Physician Assistant; PCP Nurse Practitioner Family
DX: Z76.0 Encounter for issue of repeat prescription (principal); T23.001A Burn of unspecified degree of right hand, unspecified site, initial encounter; X10.2XXA Contact with fats and cooking oils, initial encounter; Z87.891 Personal history of nicotine dependence
CPT/HCPCS: 99281

== ENCOUNTER 2023-08-13 10:25 | Day surgery (SDC) | payer MEDICAID, SELFPAY ==
[2023-08-13] VITALS (10 sets, daily range): BP systolic 105–142; BP diastolic 62–103; PULSE 49–75; RESP 16–22; TEMP 36.2–36.4; O2SAT 97–100; BMI 30.5
--- NOTE | 2023-08-13 | XR_ITS ---
WS: [id number] INTRAOPERATIVE TECHNIQUE: 16 Spot fluoroscopic images for intraoperative purposes. FLUOROSCOPY TIME: 7 seconds CLINICAL INFORMATION: [facility] FINDINGS: Fluoroscopy used for intraoperative purposes XR/XR foot LT min 3V* [id number] IMPRESSION: Images obtained for intraoperative purposes.
[2023-08-13] MEDS: sodium chloride 0.9% 1,000 ML 30 ML IV (11:09)
[2023-08-13] MEDS: gabapentin 300 mg Capsule PO (11:09)
[2023-08-13] MEDS: CELEcoxib 200 mg Capsule 400 MG PO (11:10)
[2023-08-13 11:15] LABS: OR HCG Qualitative Urine Negative (Negative)
--- NOTE | 2023-08-13 11:41 | P.HPUD_ITS ---
Surgery/Procedure H&P Update DATE OF PROCEDURE: August 13, 2023 DATE H&P PERFORMED: 07/29/23 H&P UPDATE INFORMATION: I have reviewed H&P completed within last 30 days, I have examined patient prior to procedure, No changes to prior documentation and H&P is in [facility] [place] date indicated PREOP DIAGNOSIS: Left Danyel's deformity PLANNED PROCEDURE: Operation Date: 08/13/23 12:10 Proposed Procedures p Haglunds Resection(Left) - Madhu Camarillo DPM s Platelet Rich Plasma Injection left Achilles tendon(Left) - Madhu Camarillo DPM
[2023-08-13] MEDS: fentaNYL 50 mcg/mL INJ 2mL IVP (12:07)
--- NOTE | 2023-08-13 12:10 | ANES.PREANE2 ---
Pre-Anesthetic Assessment Height/Weight: Height 1.63 m Weight 80.739 kg Temp Pulse Resp BP Pulse Ox O2 Del Method 97.5 F L 74 17 129/69 99 Room Air 08/13/23 10:46 08/13/23 10:46 08/13/23 10:46 08/13/23 10:46 08/13/23 10:46 08/13/23 10:46 Preop Diagnosis: Left Danyel's deformity Operation Date: 08/13/23 12:10 Proposed Procedures p Haglunds Resection(Left) - Madhu Camarillo DPM s Platelet Rich Plasma Injection left Achilles tendon(Left) - Madhu Camarillo DPM Familial anesthetic complications: None Was Beta Jazzy taken within 24 hours: N/A Was Clonidine taken within 24 hours: N/A Last intake: Intake Last Liquid Date 08/12/23 Last Liquid Time 22:30 Last Solid Date 08/12/23 Last Solid Time 22:30 Social No alcohol and No tobacco Exam alert, oriented x 3, clear to auscultation bilaterally and regular rate & rhythm Airway Mallampati: Class I Dentition: full Anesthetic Plan ASA status: 1 Anesthesia: General and Regional (specify below) Risk of > 500 ml blood loss (7ml/kg in children): No Medications/Allergies Home Medications Medication Instructions Recorded Confirmed Last Taken Type levothyroxine 50 mcg capsule 50 mcg PO DAILY 01/20/21 08/12/23 08/12/23 History diclofenac sodium 50 mg 50 mg PO Q12H #20 tabs 08/09/23 08/12/23 08/12/23 Rx tablet,delayed release ondansetron 8 mg disintegrating 8 mg PO .q6 PRN nausea and 08/09/23 08/12/23 08/12/23 Rx tablet vomiting #14 tabs polyethylene glycol 3350 17 17 g PO DAILY #510 grams 08/09/23 08/12/23 Unknown Rx gram/dose oral powder (Miralax) hydrocodone 5 mg-acetaminophen 325 1 tab PO Q6H PRN pain #20 tabs 08/10/23 08/12/23 08/12/23 Rx mg tablet Allergies Allergy/AdvReac Type Severity Reaction Status Date / Time No Known Allergies Allergy Verified 08/09/23 16:01 Current Medications Generic Name Dose Route Start Last Admin Trade Name Freq PRN Reason Stop Dose Admin Fentanyl 50 mcg 08/13/23 10:28 08/13/23 12:07 Fentanyl 50 Mcg/Ml Inj 2ml IVP 50 mcg Q10M PRN Administration Preop Pain Sodium Chloride 1,000 mls @ 30 mls/hr 08/13/23 10:30 08/13/23 11:09 Sodium Chloride 0.9% IV 08/14/23 10:29 30 mls/hr .Q24H PRUDENCIO Administration PFSH Anesthesia Social History Smoking and tobacco/nicotine status: former use of tobacco/nicotine Alcohol intake: current Alcohol intake frequency: holidays/special occasions only Data Anesthesia Cardiac Studies: No Data to Display
--- NOTE | 2023-08-13 12:10 | ANES.PROC ---
Anesthesia Procedures Procedure/Date: 08/13/23 Nerve Block ^: Nerve Block 1: Main Anesthesia: general anesthesia Time Out Performed: Yes Consent: requested by attending/covering physician, from patient, from other, risks and benefits reviewed and patient agrees to proceed Nerve block location: popliteal (L) Anesthesia monitors applied: pulse oximetry, EKG, BP cuff and oxygen Nerve block position: supine Anesthetic Used: ropivicaine 0.5% (30 ml) and with decadron (4 mg) Ultrasound used to: recognize landmarks Nerve Stimulator Used?: No Interscalene/Femoral BLK: 4 stimuplex 21 g needle used for position and inplane approach, visualize local anesthetic spread and no vascular puncture identified Injection: neg aspiration of heme Patient Tolerated Procedure: well Complications: none
[2023-08-13] MEDS: ceFAZolin 2,000 MG in sodium chloride 0.9% (plus) 50 ML 100 MG IV (12:47)
--- NOTE | 2023-08-13 12:55 | P.OP_ITS ---
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 Post-op diagnosis: Same Procedure done: Left Danyel's resection. CPT code 05189 Platelet rich plasma injection left Achilles tendon. 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 Has been unresponsive to physical therapy and conservative efforts consisting of rest, stretching, eccentric loading, open back shoes, topical and oral anti-inflammatories for the past 5 months. States that her pain is affecting her overall quality of life and keeping her from being more active. She is wishing to discuss surgical options. Recommended Danyel's resection and PRP injection to the Achilles tendon left lower extremity. I reviewed at length with the patient, the risks, potential complications, benefits, alternatives, expectations, and typical outcomes associated with the surgery. The risks and potential complications were explained in detail, including but not limited to infection, wound dehiscence or soft tissue complications, bleeding and hematoma, chronic edema, neuritis or nerve damage producing numbness or chronic pain, CRPS, failure to relieve pain or worsening pain, thick / painful / unsightly scar, limited motion / stiffness, malposition, delayed union, malunion, or nonunion, fracture, reaction to implants, anesthetic complications, venous thromboembolism, and deformity recurrence. I discussed the notion of no regrets with the patient as it pertains to complications and outcomes. The patient seemed to understand the nature of the proposed care and required convalescence. They asked appropriate questions, answered to their satisfaction. They are aware no guarantees can be made as to a satisfactory outcome and they understand there may be other pos sible unforeseen complications or outcomes not listed here that will be treated accordingly if they arise. There were no written or implied guarantees given to the patient. They gave informed consent to proceed. Procedure: Under mild sedation the patient was brought to the operating room and positioned onto the operating table in supine position. A timeout was performed. Anesthesia was then administered by the anesthesia service. Popliteal block to the left lower extremity was performed preoperatively per anesthesia. Well- padded pneumatic tourniquet applied to the left high calf. Left lower extremity was scrubbed, prepped and draped utilizing normal aseptic technique. Left foot and ankle were exanguinated with Esmarch bandage and tourniquet inflated to 250 mmHg. Attention was directed to the Danyel's bump at the posterior calcaneal tuberosity located at superior lateral aspect, linear longitudinal incision was made lateral to the Achilles tendon. Incision was deepened utilizing sharp and blunt technique. Care was taken to retract and preserve neurovascular and tendinous structures. All bleeders were ligated and cauterized as necessary. Osteotome was utilized to resect the Danyel's deformity followed by power rasp smoothing all rough edges. The incision was irrigated with saline solution and closed in a layered fashion. Subcutaneous tissue reapproximated with 4-0 Vicryl. Skin with 4-0 nylon. Injection of 1cc of platelet rich plasma was injected at the insertion of the left Achilles. A total of 40 cc of blood was drawn from the patient and platelet rich plasma was harvested and injected as above.
--- NOTE | 2023-08-13 13:46 | P.BOP_ITS ---
Date of Procedure: 05/21/23 Surgeon: Madhu Camarillo DPM Senior Electronics Design Engineer(s): Mor Helton Procedure(s) performed: Left calcaneal exostectomy and platelet rich plasma injection to left Achilles tendon. Findings of the procedure(s): Danyel's deformity left. Estimated blood loss: 2 mL Specimen(s) removed: No specimens Post-operative diagnosis: Left Danyel's and left Achilles tendinitis. General anesthetic, popliteal block to the left lower extremity preoperatively. No complications with anesthesia or surgery
[2023-08-13] MEDS: ondansetron 2 mg/ML SDV 2 mL 4 MG IVP (13:58)
--- NOTE | 2023-08-13 16:15 | ANE.PACU2 ---
Inpatient post-anesthesia follow up: Airway intact: Yes Vital signs: Temperature 97.6 F Pulse Rate 52 Respiratory Rate 17 Blood Pressure 124/70 Pulse Oximetry 100 Oxygen Delivery Me thod Room Air Oxygen Flow Rate Fraction of Inspir ed Oxygen Hydration adequate: Yes Nausea and vomiting: No Pain level: 1 Mental status: Baseline
--- NOTE | 2023-08-13 16:21 | SUR.PHASEII ---
Patient was ready to D/C at 1500 but waiting for meds from pharmacy.
== END 2023-08-13 16:15 | disposition home or self-care (01) ==
PROVIDERS: Anesthesiology; PCP Nurse Practitioner Family; Visit Provider Podiatrist Foot & Ankle Surgery
PROC: (CPT 20550; principal; 2023-08-13 12:00)
PROC: (CPT 0232T; 2023-08-13 12:00)
DX: M92.62 Juvenile osteochondrosis of tarsus, left ankle (principal); M76.62 Achilles tendinitis, left leg; Z87.891 Personal history of nicotine dependence
CPT/HCPCS: 20550; 28120; 73630; 76000; 81025; J0690; J1100; J2405; J2704; J2710; J2795; J3010; J3490; J7030

== ENCOUNTER 2023-08-20 07:41 | Outpatient (CLI) | payer MEDICAID, SELFPAY ==
--- NOTE | 2023-08-20 07:51 | MR_ITS ---
WS: [id number] MRI RIGHT SHOULDER ARTHROGRAM HISTORY: S46.119A - Strain of muscle, evaluate for rotator cuff tear or biceps tendon tear. COMPARISON: Noncontrast MRI shoulder 06/29/2022. TECHNIQUE: Post arthrogram imaging. Gadolinium mixture was injected under fluoroscopy. Coronal T1 fat sat, sagittal T2 fat sat, coronal T2 fat sat, axial proton density, axial T1 nonfat saturation views submitted. Good contrast opacification of the joint space. Contrast does extend extend from the joint space into the subacromial and subdeltoid bursa. There is a significant amount of contrast extending external t o the joint space. There is an oblique tear extending through the distal 2 to 3 cm of the supraspinat us tendon. There is interstitial extension of this tear also. Tear extends to the insertion site but also to the bursal surface at the level of the acromial impingement. Normal biceps tendon. Subscapularis tendon is better visualized on today's examination and normal. There is very subtle increased T2 signal and possible contrast extending into the base of the superio r labrum. Margins are irregular suggestive of a probably small tear of the superior labrum. No loose bodies within the joint. MR/MR shoulder RT wo/w con [id number] IMPRESSION: 1. Distal supraspinatus tendon tear. Insertion site tear with interstitial ext ension of the tear through the bursal surface at the level of the subacromial i mpingement. 2. There is fraying and very slight increased signal involving the base of the superior labrum. Highly suspicious for tear. 3. Normal biceps tendon.
--- NOTE | 2023-08-20 08:00 | IR_ITS ---
WS: [id number] RIGHT SHOULDER ARTHROGRAM UNDER FLUOROSCOPY. PRIOR TO MRI EVALUATION. HISTORY: right shoulder pain COMPARISON: None available. FLUOROSCOPY TIME: 0min [id number] # of spot films: 2 Procedure, risks and complications were explained to the patient. Consent has been obtained. Under fluoroscopic guidance the skin is marked over the medial superior third of the humeral head, cl eansed with ChloraPrep and anesthetized with lidocaine. 22-gauge spinal needle is inserted to the cor omar of the humeral head. Test injection with Omnipaque reveals the needle is appropriately positioned in the joint. A mixture of 10 cc sterile saline, 5 cc Omnipaque and 0.1 mmol gadolinium are injected under fluoroscopic guidance. Patient tolerated the joint distention well. No complications. IR/IR arthrogram shoulderRT [id number] IMPRESSION: Uncomplicated RIGHT shoulder joint injection prior to MRI.
[2023-08-20] MEDS: gadobenate dimeglumine 20 mL vial 0.200000000000000011 ML IV (08:35)
[2023-08-20] MEDS: iohexol 240 mg/mL 50 mL Btl 15 ML INTRA-ARTI (08:36)
== END 2023-08-20 07:42 | disposition home or self-care (01) ==
LOC: RAD 07:41
PROVIDERS: PCP Nurse Practitioner Family; Visit Provider Student in an Organized Health Care Education/Training Program
DX: S46.119A Strain of muscle, fascia and tendon of long head of biceps, unspecified arm, initial encounter (principal); M75.122 Complete rotator cuff tear or rupture of left shoulder, not specified as traumatic
CPT/HCPCS: 23350; 73223; 77002; A9577; Q9966

== ENCOUNTER 2023-10-29 17:04 | Emergency (ER) | payer MEDICAID, SELFPAY ==
[2023-10-29 17:08] VITALS: BP 146/99; PULSE 69; RESP 16; TEMP 37.1; O2SAT 99
[2023-10-29 17:36] VITALS: BP 125/42; PULSE 66; O2SAT 100
--- NOTE | 2023-10-29 17:36 | ED_ITS ---
HPI - Extremity Problem General: Chief complaint: Extremity Injury, Upper Stated complaint: R shoulder injury dr sparks sent Time Seen by Provider: 10/29/23 17:16 History of Present Illness: 33-year-old female with a history of rot ator cuff issues and plan surgery next month with Dr. Sparks. She washed her car this morning and has had worsening pain in her right arm. She is taken 800 mg of ibuprofen twice a day with no relief. Dr. Sparks is out of town and so she was told to come to the emergency room for pain relief. Related Data Home Medications Medication Instructions Recorded Confirmed levothyroxine 50 mcg capsule 50 mcg PO DAILY 01/20/21 09/23/23 Previous Rx's Medication Instructions Recorded polyethylene glycol 3350 17 17 g PO DAILY #510 grams 08/09/23 gram/dose oral powder (Miralax) fluorouracil 5 % topical cream 1 applic topical BID 4 weeks #40 08/24/23 (Efudex) grams oxycodone-acetaminophen 5 mg-325 1 tab PO Q12H PRN pain 7 days #14 09/08/23 mg tablet (Percocet) tabs cyclobenzaprine 10 mg tablet 10 mg PO Q8H PRN muscle spasm #20 10/29/23 tabs diclofenac sodium 50 mg 50 mg PO BID PRN pain #14 tabs 10/29/23 tablet,delayed release hydrocodone 5 mg-acetaminophen 325 1 tab PO Q6H PRN pain #20 tabs 10/29/23 mg tablet polyethylene glycol 3350 17 17 g PO DAILY #510 grams 10/29/23 gram/dose oral powder (Miralax) prednisone 20 mg tablet 60 mg (3 x 20 mg) PO DAILY #20 tabs 10/29/23 Allergies Allergy/AdvReac Type Severity Reaction Status Date / Time No Known Allergies Allergy Verified 10/29/23 17:13 Review of Systems Narrative: Constitutional symptoms: Negative except as documented in HPI. Skin symptoms: Negative except as documented in HPI. Eye symptoms: Negative except as documented in HPI. ENMT symptoms: Negative except as documented in HPI. Respiratory symptoms: Negative except as documented in HPI. Cardiovascular symptoms: Negative except as documented in HPI. Gastrointestinal symptoms: Negative except as documented in HPI. Genitourinary symptoms: Negative except as documented in HPI. Musculoskeletal symptoms: Negative except as documented in HPI. Neurologic symptoms: Negative except as documented in HPI. Psychiatric symptoms: Negative except as documented in HPI. Endocrine symptoms: Negative except as documented in HPI. PFSH ED PFSH: Social History Smoking and tobacco/nicotine status: former use of tobacco/nicotine Alcohol intake: current Alcohol intake frequency: holidays/special occasions only Physical Exam Narrative: EXAM NARRATIVE: General: Alert, no acute distress. Skin: warm and dry Head: Normocephalic Neck: Trachea midline Eye: Extraocular movements are intact. Ears, nose, mouth and throat: Oral mucosa moist Respiratory: Respirations are non-labored Musculoskeletal: Limited range of motion of the right shoulder secondary to pain. Pain is in the anterior shoulder rotator cuff region. Neurological: Alert and oriented, No focal neurological deficit observed. Psychiatric: Cooperative, appropriate mood & affect. Course Vital Signs: Vital signs: Vital Signs Temperature 98.8 F 10/29/23 17:08 Pulse Rate 69 10/29/23 17:08 Respiratory Rate 16 10/29/23 17:08 Blood Pressure 146/99 10/29/23 17:08 Pulse Oximetry 99 10/29/23 17:08 MDM - Extremity (Nontraumatic) Medical Decision Making Assessment and plan: Rotator cuff injury -IM Toradol, p.o. [place] in the emergency room - Discharged home - Discussed plan with patient. Answered any questions. - Evaluation and treatment of this problem were appropriate in the emergency setting. No radiology studies performed this visit Discharge Plan Discharge Patient Disposition: Home Clinical Impression: Rotator cuff impingement syndrome of right shoulder Condition: Stable Prescriptions: New hydrocodone-acetaminophen 5-325 mg tablet 1 tab PO Q6H PRN (Reason: pain) Qty: 20 0RF prednisone 20 mg tablet 60 mg PO DAILY Qty: 20 0RF Rx Instructions: 3 tabs (60 mg) x 3 days. 2 tabs (40 mg) x 3 days. 1 tab (20 mg) x 3 days. 1/2 tab (10 mg) x 4 days Miralax 17 gram/dose powder 17 g PO DAILY Qty: 510 0RF Rx Instructions: Take 1 scoop daily while taking pain medications. cyclobenzaprine 10 mg tablet 10 mg PO Q8H PRN (Reason: muscle spasm) Qty: 20 0RF diclofenac sodium 50 mg tablet,delayed release (DR/EC) 50 mg PO BID PRN (Reason: pain) Qty: 14 0RF No Action levothyroxine 50 mcg capsule 50 mcg PO DAILY fluorouracil [Efudex] 5 % cream 1 applic topical BID 28 Days Qty: 40 0RF oxycodone-acetaminophen [Percocet] 5-325 mg tablet 1 tab PO Q12H PRN (Reason: pain) 7 Days Qty: 14 0RF polyethylene glycol 3350 [Miralax] 17 gram/dose powder 17 g PO DAILY Qty: 510 0RF Rx Instructions: Take 1 scoop daily while taking pain medications. Discharge Orders: Discharge ED (Routine); Ordered 10/29/23 Ordered By: Lizzeth Spicer Referrals: Cheyanne Tejeda NP [Primary Care Provider] - David Sparks DO [Physician] - (Follow-up with Dr. Sparks as instructed.) Discharge Diet: Usual diet Discharge Activity: Increase activity as tolerated and Limit activity as instructed Patient Instructions: Opioid Safety, Pain Management Activity Restrictions/Additional Instructions: Thank you for choosing [facility] for your healthcare needs today. Please realize this is an emergency room and that we are providing you with a medical screening exam and this may not be complete and all inclusive of all the testing and or work up that you may need to determine your ailment or severity of your illness. You have been screened and evaluated and felt safe for discharge. Health conditions do change or evolve sometimes and as such it is important that you follow up with your Primary Doctor to be re checked, 3-5 days is a general good time frame for follow up. You are always welcome to return to the ED for re assessment if your symptoms are worsening or you have new concerns Coding Level of Care Code ED Cooker Tender for Suraj Jacobs
[2023-10-29] MEDS: ketorolac 60 mg/2 mL INJ IM (17:38)
[2023-10-29] MEDS: HYDROcodone-acetaminophen 10-325 mg Tablet 1 TAB PO (17:39)
[2023-10-29 18:19] VITALS: BP 122/69; PULSE 70; O2SAT 98
[2023-10-29 18:20] VITALS: BP 122/69; PULSE 70; O2SAT 98
== END 2023-10-29 18:20 | disposition home or self-care (01) ==
PROVIDERS: Emergency Provider Emergency Medicine; PCP Nurse Practitioner Family
DX: M75.41 Impingement syndrome of right shoulder (principal); Z87.891 Personal history of nicotine dependence
CPT/HCPCS: 96372; 99284; J1885

== ENCOUNTER 2023-11-29 07:57 | Day surgery (SDC) | payer MEDICAID, SELFPAY ==
[2023-11-29] VITALS (9 sets, daily range): BP systolic 126–143; BP diastolic 65–89; PULSE 56–81; RESP 14–18; TEMP 36.1–36.2; O2SAT 97–100
[2023-11-29] MEDS: sodium chloride 0.9% 1,000 ML 30 ML IV (08:21)
[2023-11-29] MEDS: acetaminophen 1,000 MG/100 ML PIGGYBACK 400 MG IV (08:23)
[2023-11-29] MEDS: ketorolac 30 mg/mL INJ IVP (08:25)
[2023-11-29] MEDS: scopolamine 1.5 Patch 1 PATCH TRANSDERMA (08:28)
--- NOTE | 2023-11-29 09:17 | P.ANESASSM_ITS ---
Pre-Anesthetic Assessment Height/Weight: Height 1.63 m Weight 83.007 kg Temp Pulse Resp BP Pulse Ox O2 Del Method 97 F L 81 18 130/79 99 Room Air 11/29/23 08:30 11/29/23 08:30 11/29/23 08:30 11/29/23 08:30 11/29/23 08:30 11/29/23 08:30 Operation Date: 11/29/23 09:40 Proposed Procedures p Shoulder Arthroscopy(Right) - David Winnebago, DO s Rotator Cuff Repair - Arthroscopy(Right) - David Winnebago, DO s Subacromial Decompression(Right) - David Winnebago, DO s SLAP Repair(Right) - David Bridger, DO s Bicep Tenodesis(Right) - David Bridger, DO Familial anesthetic complications: None Was Beta Jazzy taken within 24 hours: N/A Was Clonidine taken within 24 hours: N/A Last intake: Intake Last Liquid Date 11/28/23 Last Liquid Time 22:30 Last Solid Date 11/28/23 Last Solid Time 18:00 Social No alcohol and No tobacco Exam alert, oriented x 3, clear to auscultation bilaterally and regular rate & rhythm Airway Mallampati: Class I Dentition: full Metabolic Thyroid Disease Anesthetic Plan ASA status: 1 Anesthesia: General and Regional (specify below) Risk of > 500 ml blood loss (7ml/kg in children): No Medications/Allergies Home Medications Medication Instructions Recorded Confirmed Last Taken Type levothyroxine 50 mcg capsule 50 mcg PO DAILY 01/20/21 11/29/23 11/29/23 History prednisone 10 mg tablet 10 mg PO DIRECTED #42 tabs 11/24/23 11/29/23 11/28/23 Rx ibuprofen 800 mg tablet 800 mg PO TID PRN Pain 11/26/23 11/26/23 11/26/23 History hydrocodone 5 mg-acetaminophen 325 1 tab PO Q6H PRN pain 5 days #20 11/29/23 Unknown Rx mg tablet tabs Allergies Allergy/AdvReac Type Severity Reaction Status Date / Time No Known Allergies Allergy Verified 11/24/23 10:53 Current Medications Generic Name Dose Route Start Last Admin Trade Name Freq PRN Reason Stop Dose Admin Sodium Chloride 1,000 mls @ 30 mls/hr 11/29/23 08:15 11/29/23 08:21 Sodium Chloride 0.9% IV 11/30/23 08:14 30 mls/hr .Q24H PRUDENCIO Administration PFSH Anesthesia Social History Smoking and tobacco/nicotine status: unknown if used tobacco/nicotine Alcohol intake: current Alcohol intake frequency: holidays/special occasions only Data Anesthesia Cardiac Studies: No Data to Display
--- NOTE | 2023-11-29 09:48 | P.HP_ITS ---
Same Day Surgery H&P Indication for Procedure/HPI DATE OF PROCEDURE: November 29, 2023 CHIEF COMPLAINT/INDICATIONFOR SURGICAL PROCEDURE: Right shoulder rotator cuff tear, SLAP tear, rotator cuff impingement PREOP DIAGNOSIS: Right shoulder rotator cuff tear, SLAP tear, rotator cuff impingement PLANNED PROCEDURE: Operation Date: 11/29/23 09:40 Proposed Procedures p Shoulder Arthroscopy(Right) - David Renville, DO s Rotator Cuff Repair - Arthroscopy(Right) - David Renville, DO s Subacromial Decompression(Right) - David Bridger, DO s SLAP Repair(Right) - David Renville, DO s Bicep Tenodesis(Right) - David Renville, DO Medications/Allergies* Home Medications Medication Instructions Recorded Confirmed Type levothyroxine 50 mcg capsule 50 mcg PO DAILY 01/20/21 11/29/23 History ibuprofen 800 mg tablet 800 mg PO TID PRN Pain 11/26/23 11/26/23 History Allergies/Adverse Reactions Allergy/AdvReac Type Severity Reaction Status Date / Time No Known Allergies Allergy Verified 11/24/23 10:53 Current Medications: Generic Name Dose Route Start Last Admin Trade Name Freq PRN Reason Stop Dose Admin Sodium Chloride 1,000 mls @ 30 mls/hr 11/29/23 08:15 11/29/23 08:21 Sodium Chloride 0.9% IV 11/30/23 08:14 30 mls/hr .Q24H PRUDENCIO Administration Pertinent History/Comorbid Conditions* Social History Smoking and tobacco/nicotine status: unknown if used tobacco/nicotine Alcohol intake: current Alcohol intake frequency: holidays/special occasions only Pertinent Exam Findings alert, oriented x 3, operative site marked and procedure specific exam findings Please refer to detailed orthopedic examination on 09/20/2023: Right shoulder examination shoulder exam: C-Spine ROM: Normal no pain Spurlings: Negative ROM: Patient able to tolerate full passive range of motion pain on end ranges ac tively TTP tenderness palpation over the bicipital groove mildly over the lateral aspect of the shoulder, tenderness over AC joint Internal Rotation 5 out of 5 with elbows at the side External Rotation 5 out of 5 with elbows at the side O'Briens: Positive Jobes: Positive pain with giveaway weakness Weeks Impingement: Positive Speeds Test: Positive for biceps pathology Crossover/Neers test: Negative Recommendations Surgery/Procedure today Other Plans: Plan proceed to the OR today for right shoulder diagnostic and surgical arthroscopy with rotator cuff repair, subacromial decompression, possible SLAP repair versus biceps tenodesis. Patient understands the ins and outs of procedure the risk benefits complication alternatives surgery and through shared decision-making elects proceed with surgical intervention. All questions been answered at this time. Coding Level of Care Code Acute Code for Chg Fwd
[2023-11-29] MEDS: midazolam 1 mg/mL INJ 2 mL 2 MG IVP (09:50)
--- NOTE | 2023-11-29 09:56 | PC.NURSE ---
pt prepared for block for shoulder. Time out performed by anesthesia pt received 2mg versed for anxiety. Oxygen was administered through a nasal cannula, pt was placed on heart an O2 sat monitoring for block placement. Pt was given 20cc of 0.5% ropivicaine for pain control post surgery.
--- NOTE | 2023-11-29 09:58 | ANES.PROC ---
Anesthesia Procedures Procedure/Date: 11/29/23 Nerve Block ^: Nerve Block 1: Main Anesthesia: general anesthesia Time Out Performed: Yes Consent: requested by attending/covering physician, from patient, from other, risks and benefits reviewed and patient agrees to proceed Nerve block location: interscalene (R) Anesthesia monitors applied: pulse oximetry, EKG, BP cuff and oxygen Nerve block position: semi sitting Anesthetic Used: ropivicaine 0.5% (20 ml) and with decadron (3mg) Ultrasound used to: recognize landmarks, visualize and ID brachial plexus, in supraclavicular region and visualize and ID interscalene groove Nerve Stimulator Used?: No Interscalene/Femoral BLK: 2 stimuplex 22 g needle used for position and inplane approach, visualize local anesthetic spread and no vascular puncture identified Injection: neg aspiration of heme Patient Tolerated Procedure: well and no complications Complications: none
[2023-11-29] MEDS: ceFAZolin 2,000 MG in sodium chloride 0.9% (plus) 50 ML 100 MG IV (10:29)
[2023-11-29] MEDS: EPINEPHrine 1 mg/mL INJ 2 MG XX (11:07)
--- NOTE | 2023-11-29 11:58 | W.PM.BPON ---
Date of Procedure: 11/29/2023 Surgeon: David Sparks DO Instructional Supervisor(s): Ulises Sparks PA-C Procedure(s) performed: Right shoulder diagnostic and surgical arthroscopy with SLAP repair Right shoulder diagnostic and surgical arthroscopy with rotator cuff repair (small) Right shoulder subacromial decompression (acromioplasty and bursectomy) Findings of the procedure(s): Patient was found to have a SLAP tear as well as a small rotator cuff tear underwent procedure as planned without issues or complications Estimated blood loss: 5 mL Specimen(s) removed: None Post-operative diagnosis: Right shoulder SLAP tear, rotator cuff tear, subacromial impingement
--- NOTE | 2023-11-29 12:00 | P.OP_ITS ---
Operative Report Date of procedure: November 29, 2023 Surgeon: David Sparks DO [employer]: Ulises Sparks PA-C: PA was necessary for assistance in this case with shoulder positioning to execute the procedure, assistance with instrumentation, as well as implant fixation for repairs of labrum and rotator cuff, assist with wound closure and dressing application. Procedure: Preoperative diagnosis: Right shoulder rotator cuff tear, SLAP tear, rotator cuff impingement Post-op diagnosis: Right shoulder SLAP tear, rotator cuff tear, subacromial impingement Procedure done: Right shoulder diagnostic and surgical arthroscopy with SLAP repair Right shoulder diagnostic and surgical arthroscopy with rotator cuff repair (small) Right shoulder subacromial decompression (acromioplasty and bursectomy) Surgeon: David Sparks DO Estimated blood loss: 5mL IV fluids: See anesthesia record Implants: Arthrex suture tacks x 2 Arthrex 4.75 swivel lock x 1 with suture tape Complications: None Condition: stable Disposition: same day Brief History: Patient been seen and worked up in the outpatient setting for?right?shoulder?pain.? Pt had an MRI which showed findings below.? Patient's failed conservative treatment and has weakness.? We talked about treatment options far as nonoperative and operative intervention..? We talked about risk benefits complication alternatives surgical nonsurgical treatment options.? Understanding risk of surgery pt agrees to proceed with surgical intervention.? All questions have been answered at this time.? Patient elects proceed with surgery for right shoulder diagnostic and surgical arthroscopy with rotator cuff repair, subacromial decompression, possible SLAP repair versus biceps tenodesis.. MR/MR shoulder RT wo/w con [id number] IMPRESSION: 1. Distal supraspinatus tendon tear. Insertion site tear with interstitial extension of the tear through the bursal surface at the level of the subacromial impingement. 2. There is fraying and very slight increased signal involving the base of the superior labrum. Highly suspicious for tear. 3. Normal biceps tendon. Procedure: Patient seen evaluated in the preoperative holding area.? Consent reviewed and signed with patient.? Once again reviewed patient's MRI results as well as? planned surgical intervention.? Correct extremity marked.? Patient seen evaluated by anesthesia department received regional anesthesia.? Once ready for surgery was taken back to the operative suite.? Patient then subsequently underwent anesthesia per the anesthesia department was transported onto the OR table.? Patient was then placed into a lateral decubitus position with a beanbag and was appropriately secured to the bed.? All bony prominences well-padded.? Bhavik de la torre then had the?right?upper extremity was then prepped and draped in standard orthopedic fashion.? Patient received appropriate preoperative antibiotics.? Final timeout performed. The?right?upper extremity was then held in hanging from traction utilizing sterile technique.? Next started with standard diagnostic and surgical arthroscopy with posterior portal position introduced arthroscope into the glenohumeral joint.? Visualized the glenohumeral joint I then introduced a spinal needle within the rotator cuff interval to confirm appropriate anterior portal placement.? Once this was confirmed I then made my small incision and then introduced my arthroscopic shaver into the glenohumeral joint.? After thorough debridement was clearly evident patient had a significant erythema as well as unstable bicep tendon with a clearly evident SLAP tear. At this point given patient's young age decision was made for a SLAP repair. At this point in time I establish my accessory anterior portal to have appropriate trajectory for my suture tack placement. At this point in time I utilized a 2 portal technique. My secondary portal was made just off of the subscapularis tendon to have appropriate trajectory. At this point in time and then subsequently a small incision establish to pack purple passport cannulas. At this point in time I then utilized a arthroscopic elevator and elevated through the SLAP tear to have appropriate mobilization. Next a utilized a rasp and a shaver to debride and prep of the SLAP repair for repair. At this point in time I then subsequently placed and drilled my first anterior suture tack to repair the anterior portion of the SLAP tear. This was subsequently drilled and suture was then placed and the anchor was subsequently set. I then utilized a lasso had excellent purchase of the anterior portion of the labrum in front of the biceps anchor this was then subsequently pulled out of my accessory portal and then subsequently passed my blue passport stitch and then in standard Arthrex fashion utilized the knotless suture tack technique and secured the anterior portion of the labral repair down and left my excess for final tensioning at the end. Next in the same fashion I did this to the posterior portion of the SLAP tear. I subsequently found my appropriate placement posterior to the biceps anchor over the posterior aspect of the SLAP tear. I then subsequently drilled and placed the Arthrex knotless suture tack subsequently placed a lasso along this and purchased the posterior portion of the labrum at this tear site. This was then used as my shuttling for the blue stitch and then in standard Arthrex fashion per protocol utilized the knotless suture tack technique and secured the posterior portion of the labrum down to finalize my SLAP repair. I then subsequently tensioned both of these 1 more additional time and had excellent closure and opposition along the repair site and then removed all excess suture with arthroscopic suture cutters. This completed my SLAP repair. Next I evaluated the subscapularis tendon which was intact and no evidence of tear. ?Next there was no other significant labral tearing was noted and the rest of the labrum was left alone. ? This point time I then visualized the glenohumeral joint.? The glenohumeral joint was found to have grade 1 chondromalacia throughout.? axillary pouch was free of loose bodies from viewing the posterior portal.? Next a visualized the rotator cuff superiorly and there was found to be a small undersurface tearing of the supraspinatus tendon.? I utilized a spinal n eedle to moody this location.?? This completed my work within the glenohumeral joint all fluid was suctioned free of the joint.? ?Next I reintroduced the arthroscope posteriorly.? And went to the subacromial space.? I established my lateral working portal at the site of which my spinal needle was marking of the rotator cuff tear.? Thermal wand was then introduced laterally and then I subsequently performed extensive bursectomy of the subacromial space.? Patient had a large anterior bone spur.? Given patient's young age and no AC joint pain on examination the AC joint was left alone and no AC resection was performed. ? I then performed an acromioplasty to complete my subacromial decompression prior to evaluating rotator cuff.? Next the arthroscopic shaver was then used previous spinal needle spot that is marked the small hole in the rotator cuff this was consistent with a small full- thickness tear.? Given the small size this did not need a medial and lateral row configuration as result my plan was for a horizontal mattress stitch with a single lateral row anchor.? As result I loaded and Arthrex scorpion with fiber tape and subsequently.? A horizontal mattress purchase appropriately spaced to the small tear of the supraspinatus tendon.? At this point in time and then introduced a shaver to debride the rotator cuff footprint and decorticate the footprint in preparation for repair, next I marked by swivel lock position.? Fiber tape was then loaded into a 475 swivel lock I then subsequently punched and then subsequently placement 4.75 swivel lock while maintaining appropriate t ension and repair of rotator cuff and this was advanced with excellent fixation I then had a final confirmation of appropriate repair of the supraspinatus rotator cuff tendon tear.? Sutures were then cut with an arthroscopic suture cutter and subsequently evaluated the rotator cuff repair.? Repair was found to be satisfactory?shoulder?was taken through range of motion and the repair moved as a unit with no evidence of loss of fixation. ?I then switched the arthroscope to the lateral portal to confirm this tension- free repair.? I took the?shoulder?through range of motion and the rotator cuff r epair was stable and moved as a unit. ?Next I then introduced the arthroscopic shaver posteriorly to complete my subacromial decompression appropriate complaining all the way up to the lateral edge of the acromion.? This completed the surgery.? All fluid was suctioned from the?shoulder.? All instruments were removed.? The lateral incision was then closed with nylon stitches.? As well as the portal sites closed with portal nylon stitches.? Xeroform 4 x 4's ABD and tape was then applied to the?right?shoulder?and was placed into a?shoulder?abduction pillow sling for rotator cuff repair/SLAP repair protocol.? Patient was then awakened from anesthesia and then taken back to PACU in stable condition.? Patient tolerated procedure without any issues. Disposition: Patient taken back in stable condition recovering well.? Dressings on in place clean dry and intact.? Will be nonweightbearing to the?right?upper extremity.? No active range of motion of the right shoulder. Follow rotator cuff repair/SLAP repair protocol.? Patient to follow-up with me in the office in 2 weeks.? Patient will receive appropriate discharge instruction as well as pain medication postoperatively.? All questions answered.? We will contact the office for any questions or concerns.
--- NOTE | 2023-11-29 12:18 | PM.PACU ---
PACU note Narrative: Patient is a 33-year-old female that just underwent a right shoulder diagnostic and surgical arthroscopy. Patient transferred to PACU in stable condition. Pain is well controlled. shoulder Dressing on , dry and in place. Patient's operative arm is in a shoulder immobilizer. Patient is awake and alert and able to respond to my questions accordingly. Patient's fingers are warm with good perfusion. Normal cap refill under 2 seconds. Unable to assess further range of motion in arm due to sling. Unable to assess sensation due to residual localized anesthetic. Exam: awake Disposition: discharged
--- NOTE | 2023-11-29 12:28 | SUR.PHASEI ---
RECEIVED PT FROM OR STAFF. AIRWAY PATENT. GOOD CHEST RISE AND FALL. RESPONDS TO VERBAL. NSR ON MONITOR.
[2023-11-29] MEDS: ondansetron 2 mg/ML SDV 2 mL 4 MG IVP (12:32)
--- NOTE | 2023-11-29 12:33 | SUR.PREOP ---
ROM AND SENSATION OF RIGHT HAND FINGER. GOOD CAPILLARY REFILL. MEDICATED FOR NAUSEA.
--- NOTE | 2023-11-29 13:15 | ANE.PACU2 ---
Inpatient post-anesthesia follow up: Airway intact: Yes Vital signs: Temperature 97.0 F Pulse Rate 65 Respiratory Rate 16 Blood Pressure 139/89 Pulse Oximetry 99 Oxygen Delivery Me thod Room Air Oxygen Flow Rate Fraction of Inspir ed Oxygen Hydration adequate: Yes Nausea and vomiting: No Pain level: 1 Mental status: Baseline
[2023-11-30 08:39] LABS: OR HCG Qualitative Urine Negative (Negative)
== END 2023-11-29 13:17 | disposition home or self-care (01) ==
PROVIDERS: Anesthesiology; PCP Nurse Practitioner Family; Visit Provider Student in an Organized Health Care Education/Training Program
PROC: (CPT 29805; principal; 2023-11-29 09:40)
PROC: (CPT 29827; 2023-11-29 09:40)
PROC: (CPT 29826; 2023-11-29 09:40)
PROC: (CPT 29807; 2023-11-29 09:40)
DX: S43.431A Superior glenoid labrum lesion of right shoulder, initial encounter (principal); X58.XXXA Exposure to other specified factors, initial encounter; M75.101 Unspecified rotator cuff tear or rupture of right shoulder, not specified as traumatic; M25.811 Other specified joint disorders, right shoulder
CPT/HCPCS: 29807; 29826; 29827; 81025; A7015; C1713; J0131; J0171; J0690; J1100; J1885; J2250; J2405; J2704; J2710; J2795; J3010; J3490; J7030

== ENCOUNTER → 2024-03-13 08:20 | Outpatient (BNVA) | payer MEDICAID, SELFPAY | PROVIDERS: PCP Nurse Practitioner Family; Visit Provider Physician Assistant | DX: Z98.890 Other specified postprocedural states (principal); M75.41 Impingement syndrome of right shoulder | CPT/HCPCS: 73030 ==

== ENCOUNTER → 2024-07-18 10:28 | Outpatient (BNVA) | payer MEDICAID, SELFPAY | PROVIDERS: PCP Nurse Practitioner Family; Visit Provider Podiatrist Foot & Ankle Surgery | DX: M76.61 Achilles tendinitis, right leg (principal); M92.61 Juvenile osteochondrosis of tarsus, right ankle; M77.51 Other enthesopathy of right foot and ankle | CPT/HCPCS: 73630 ==